=== PATIENT | male | born 1965 | race Caucasian/White ===

== ENCOUNTER 2017-06-30 06:53 | Day surgery (SDC) | payer OTHER ==
[~2017-06-30] VITALS: Ht 182.9 cm; Wt 116.5 kg
[2017-06-30] MEDS ORDERED: BACITRACIN 50,000 UNIT ONE (06:59)
[2017-06-30] MEDS ORDERED: BUPIVACAINE/PF-EPI 0.5% 1:200K ONE ×2 (06:59→07:12)
[2017-06-30] MEDS ORDERED: THROMBIN 5,000 UNIT VIAL TP ONE (06:59)
[2017-06-30] MEDS ORDERED: VANCOMYCIN 1,000 MG ONE (06:59)
[2017-06-30 07:47] VITALS: BP 145/89
[2017-06-30] MEDS ORDERED: LACTATED RINGERS 1,000 ML IV SCH (07:53)
[2017-06-30] MEDS ORDERED: MIDAZOLAM 1 MG/ML, 2ML ONE (08:09)
[2017-06-30] MEDS ORDERED: FENTANYL PF 250 MCG/5ML ONE (08:10)
[2017-06-30] MEDS ORDERED: PROPOFOL 10 MG/ML, 20ML ONE (08:10)
[2017-06-30] MEDS ORDERED: CEFAZOLIN 1,000 MG ONE ×2 (08:11)
[2017-06-30] MEDS ORDERED: ROCURONIUM 10MG/ML,5ML ONE (08:11)
[2017-06-30] MEDS ORDERED: WATER-INJECTION,STERILE 10 ML IV ONE (08:11)
[2017-06-30] MEDS ORDERED: NEOSTIGMINE 1 MG/ML, 10ML ONE (08:13)
[2017-06-30] MEDS ORDERED: GLYCOPYRROLATE 0.4 MG/2 ML, 2ML ONE (08:13)
[2017-06-30] MEDS ORDERED: ACET-1600 PO (08:22)
[2017-06-30] MEDS ORDERED: ZOLP12.52 PO (08:22)
[2017-06-30] MEDS ORDERED: PHENYLEPHRINE 10 MG/ML ONE (09:09)
[2017-06-30] MEDS ORDERED: OXYcodone 5 MG/5 ML ORAL.SOL UDC PO PRN (09:30)
[2017-06-30] MEDS ORDERED: DEXAMETHASONE 4 MG/ML, 1ML ONE ×2 (09:36)
[2017-06-30] MEDS ORDERED: GABAPENTIN 300 MG CAPSULE PO ONE (10:00)
[2017-06-30] MEDS ORDERED: ONDANSETRON ODT 8 MG PO ONE (10:00)
[2017-06-30] MEDS ORDERED: ACETAMINOPHEN 500 MG TABLET PO ONE (10:00)
[2017-06-30] MEDS ORDERED: OxyconTIN ER 10 MG TAB.ER PO ONE (10:00)
[2017-06-30] MEDS ORDERED: FENTANYL PF 100 MCG/2ML ONE ×2 (10:53→11:55)
[2017-06-30] MEDS: FENTANYL PF 100 MCG/2ML IV PRN ×4 (10:55→12:13)
[2017-06-30] MEDS ORDERED: HYDROmorphone 1 MG/ML, 1ML ONE (11:05)
[2017-06-30] MEDS: HYDROmorphone 1 MG/ML, 1ML IV PRN ×2 (11:08→12:16)
[2017-06-30] MEDS: DIAZEPAM 5 MG/ML, 2ML IV ONE ×2 (11:25→11:37)
[2017-06-30] MEDS ORDERED: LABETALOL 5MG/ML, 20ML ONE (11:40)
[2017-06-30] MEDS ORDERED: OXYcodone 5 MG/5 ML ORAL.SOL UDC ONE (11:54)
[2017-06-30] MEDS ORDERED: LABETALOL 5MG/ML, 20ML IV PRN (12:00)
[2017-06-30] MEDS ORDERED: hydrALAzine 20 MG/ML, 1ML IV PRN (12:00)
[2017-06-30] MEDS ORDERED: TIZANIDINE 4MG TABLET PO ONE (14:00)
[2017-06-30] MEDS ORDERED: OXYcodone/APAP 5/325MG TABLET PO ONE (14:00)
== END 2017-06-30 16:25 ==
LOC: OUT 06:53
PROVIDERS: ATTEND Neurological Surgery
DX: M51.16 Intervertebral disc disorders with radiculopathy, lumbar region (principal); M48.061 Spinal stenosis, lumbar region without neurogenic claudication; G43.909 Migraine, unspecified, not intractable, without status migrainosus; Z87.39 Personal history of other diseases of the musculoskeletal system and connective tissue; Z72.89 Other problems related to lifestyle
CPT/HCPCS: 63030; 72100; J0690; J1100; J1170; J2250; J2370; J2704; J2710; J3010; J3360; J7120; J3370